=== PATIENT | male | born 1970 | race Hispanic/Latino ===

== ENCOUNTER 2018-03-15 20:14 | Observation (INO) | payer OTHER ==
[~2018-03-15] VITALS: Ht 172.7 cm; Wt 48.1 kg
[2018-03-15 20:42] LABS: BASOPHILS % (AUTO) 0.4 % (0.0-5.0); EOSINOPHILS % (AUTO) 1.5 % (0.0-8.0); HEMATOCRIT 43.1 % (42-54); LYMPHOCYTES % (AUTO) 29.7 % (21.0-51.0); MEAN CORPUSCULAR HEMOGLOBIN 32.6 pg (27.0-33.0); MEAN CORPUSCULAR HGB CONC 35.9 g/dL (32.0-36.0); MEAN CORPUSCULAR VOLUME 90.8 fL (79-99); MONOCYTES % (AUTO) 7.4 % (3.0-13.0); PLATELET COUNT (AUTO) 175 K/uL (130-400); RED BLOOD CELL COUNT(AUTO) 4.75 MIL/uL (4.50-6.20); RED CELL DISTRIBUTION WIDTH 14.5 % (11.0-15.5)
[2018-03-15] MEDS ORDERED: CHLORDIAZEPOXIDE HCL 25 MG CAP ONE (20:51)
[2018-03-15 20:53] LABS: CARBON DIOXIDE 27 mmol/L (21-32); CHLORIDE 104 mmol/L (101-111); GLOMERULAR FILTR. RATE CALC 84 mL/min (>60); GLUCOSE,RANDOM 94 mg/dL (70-105); SODIUM SERUM 139 mmol/L (136-145); UREA NITROGEN, BLOOD 14 mg/dL (7-18)
[2018-03-15 20:57] LABS: ALANINE AMINOTRANSFERASE 18 U/L (12-78); ALBUMIN 3.8 g/dL (3.5-5.0); ALCOHOL, BLOOD 30 mg/dL (0-10); ASPARTATE AMINOTRANSFERASE 40 U/L (10-37); BILIRUBIN,TOTAL 0.4 mg/dL (0.2-1.0); SALICYLATE 4.9 mg/dL (2.8-20.0); TOTAL PROTEIN, SERUM 7.5 g/dL (6.0-8.3)
[2018-03-15 21:00] LABS: ACETAMINOPHEN < 1 mcg/mL (10-29)
[2018-03-15] MEDS ORDERED: M.V.I. IV [ADULT] 10 ML, THIAMINE HCL 100 MG, FOLIC ACID 1 MG in SODIUM CHLORIDE 0.9% 1... IV ONE (21:30)
[2018-03-15 22:30] LABS: APPEARANCE,URINE Clear (CLEAR); BILIRUBIN,URINE Negative (NEGATIVE); COLOR,URINE Yellow (YELLOW); GLUCOSE, URINE (UA) Negative (NEGATIVE); KETONES,URINE Negative (NEGATIVE); LEUKOCYTE ESTERASE ,URINE Negative (NEGATIVE); NITRATE,URINE Negative (NEGATIVE); OCCULT BLOOD,URINE Negative (NEGATIVE); PH,URINE 5.5 (5.0-8.0); PROTEIN,URINE Negative (NEGATIVE)
[2018-03-15 22:36] LABS: AMPHET/METH SCREEN,URINE NEGATIVE (NEGATIVE); BARBITURATE SCREEN, URINE NEGATIVE (NEGATIVE); BENZODIAZEPINES SCREEN,URINE NEGATIVE (NEGATIVE); CANNABINOID SCREEN,URINE NEGATIVE (NEGATIVE); COCAINE SCREEN,URINE POSITIVE (NEGATIVE); OPIATE SCREEN,URINE NEGATIVE (NEGATIVE); PHENCYCLIDINE SCREEN,URINE NEGATIVE (NEGATIVE)
[2018-03-16] VITALS: BP 148/90
[2018-03-16] MEDS ORDERED: SODIUM CHLORIDE 0.9% 1000ML 1,000 ML IV SCH (00:30)
[2018-03-16] MEDS ORDERED: LORAZEPAM 1 MG TABLET PO PRN (00:30)
[2018-03-16] MEDS ORDERED: ONDANSETRON HCL MDV 20ML 2 MG/ML VIAL IVP PRN (01:00)
[2018-03-16 03:40] VITALS: BP 109/60
[2018-03-16 04:19] LABS: HEMATOCRIT 42.3 % (42-54); MEAN CORPUSCULAR HEMOGLOBIN 31.9 pg (27.0-33.0); MEAN CORPUSCULAR HGB CONC 35.1 g/dL (32.0-36.0); MEAN CORPUSCULAR VOLUME 90.9 fL (79-99); NUCLEATED RED BLOOD CELLS 0.1 % (0.0-0.19); PLATELET COUNT (AUTO) 159 K/uL (130-400); RED BLOOD CELL COUNT(AUTO) 4.65 MIL/uL (4.50-6.20); RED CELL DISTRIBUTION WIDTH 14.3 % (11.0-15.5); WHITE BLOOD COUNT (AUTO) 4.4 K/uL (4.8-10.8)
[2018-03-16 04:29] LABS: ALBUMIN 3.1 g/dL (3.5-5.0); BILIRUBIN,DIRECT 0.1 mg/dL (0.0-0.3); BILIRUBIN,TOTAL 0.5 mg/dL (0.2-1.0); CREATININE 0.8 mg/dL (0.5-1.5); POTASSIUM 3.6 mmol/L (3.5-5.1); TOTAL PROTEIN, SERUM 6.3 g/dL (6.0-8.3)
[2018-03-16 07:32] VITALS: BP 132/78
[2018-03-16] MEDS ORDERED: FAMOTIDINE 20MG TAB 20 MG TAB PO SCH (09:00)
[2018-03-16] MEDS ORDERED: CHLORDIAZEPOXIDE HCL 25 MG CAP PO SCH (09:00)
[2018-03-16 11:11] VITALS: BP 135/74
[2018-03-16] MEDS ORDERED: FAMO20TA8 PO (11:58)
[2018-03-16 16:23] VITALS: BP 103/60
[2018-03-16 16:25] VITALS: BP 152/89
== END 2018-03-16 18:25 | disposition home or self-care (01) ==
LOC: EDH 20:14 → EDHIP 21:45 → 3BH 22:27
PROVIDERS: ADMIT Family Medicine; ATTEND Family Medicine
DX: F10.231 Alcohol dependence with withdrawal delirium (principal); G93.40 Encephalopathy, unspecified; K70.30 Alcoholic cirrhosis of liver without ascites; F17.210 Nicotine dependence, cigarettes, uncomplicated; F32.9 Major depressive disorder, single episode, unspecified; F06.4 Anxiety disorder due to known physiological condition; F14.90 Cocaine use, unspecified, uncomplicated; Y90.1 Blood alcohol level of 20-39 mg/100 ml; Z82.3 Family history of stroke; Z82.49 Family history of ischemic heart disease and other diseases of the circulatory system; Z83.3 Family history of diabetes mellitus; Z90.49 Acquired absence of other specified parts of digestive tract
CPT/HCPCS: 36415 ×2; 80048; 80053; 80076; 80305; 81003; 85025; 85027; 93005; 99285; G0378 ×21; G0480 ×2; G0481; J3411; J3490; J7030

== ENCOUNTER 2018-12-07 01:35 | Emergency (ER) | payer OTHER ==
[~2018-12-07 01:35] MED LIST: FAMO20TA8 PO
[2018-12-07] MEDS ORDERED: LORAZEPAM 2 MG/ML 1 ML VIAL ONE (01:51)
== END 2018-12-07 02:15 | disposition home or self-care (01) ==
LOC: EDH 01:35
DX: F41.8 Other specified anxiety disorders (principal); I10 Essential (primary) hypertension; R51 Headache; F19.10 Other psychoactive substance abuse, uncomplicated; F31.9 Bipolar disorder, unspecified; Z90.49 Acquired absence of other specified parts of digestive tract; Z72.0 Tobacco use
CPT/HCPCS: 96372; 99284; J2060

== ENCOUNTER 2018-12-07 18:21 | Emergency (ER) | payer OTHER ==
[2018-12-07] MEDS ORDERED: ACETAMINOPHEN 325 MG TAB ONE (19:21)
[2018-12-07] MEDS ORDERED: LORAZEPAM 2 MG/ML 1 ML VIAL ONE (19:21)
== END 2018-12-07 20:02 | disposition home or self-care (01) ==
LOC: EDH 18:21
DX: F43.0 Acute stress reaction (principal); F31.9 Bipolar disorder, unspecified; F41.9 Anxiety disorder, unspecified; Z72.0 Tobacco use; Z90.49 Acquired absence of other specified parts of digestive tract
CPT/HCPCS: 96372; 99283; J2060

== ENCOUNTER 2019-06-13 05:15 | Emergency (ER) | payer OTHER ==
[2019-06-13] MEDS ORDERED: HYDROXYZINE HCL 25 MG TABLET ONE (05:52)
== END 2019-06-13 06:04 | disposition home or self-care (01) ==
LOC: EDH 05:15
DX: F41.8 Other specified anxiety disorders (principal); F31.9 Bipolar disorder, unspecified; F20.9 Schizophrenia, unspecified; Z90.49 Acquired absence of other specified parts of digestive tract; Z72.0 Tobacco use